=== PATIENT | female | born 2005 | race Caucasian/White ===

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

== ENCOUNTER 2024-05-11 04:11 | Emergency (ER) | payer MEDICAID ==
[~2024-05-11] VITALS: Ht 162.6 cm; Wt 58.2 kg
[2024-05-11] MEDS: ondansetron 4mg rapidly disintigrating tab PO ONE (04:38)
[2024-05-11] MEDS: ketorolac trometh 15mg/ml vial 15 MG/ML ML IV ONE (05:31)
[2024-05-11] MEDS: normal saline 1000ml 1,000 ML IV ONE (05:31)
[2024-05-11] MEDS: proCHLORperazine 10 MG/2 ml inj IV ONE (05:31)
[2024-05-11 05:32] VITALS: PULSE 87
[2024-05-11 05:48] VITALS: BP 120/80; RESP 14; TEMP 97.9; O2SAT 100
[2024-05-11] MEDS ORDERED: ONDA-245 PO (05:48)
== END 2024-05-11 06:24 | disposition home or self-care (01) ==
LOC: ER 04:12
DX: R11.2 Nausea with vomiting, unspecified (principal); Z88.0 Allergy status to penicillin; Z88.8 Allergy status to other drugs, medicaments and biological substances; Z87.440 Personal history of urinary (tract) infections
CPT/HCPCS: 96374; 96375; 99284; J0780; J1885; J7030

== ENCOUNTER 2025-01-24 03:30 | Emergency (ER) | payer MEDICAID ==
[~2025-01-24] VITALS: Ht 162.6 cm; Wt 70.5 kg
[~2025-01-24 03:30] MED LIST changes: +ONDA-245 PO
[2025-01-24 03:39] VITALS: BP 107/69; PULSE 127; RESP 22; TEMP 97.6; O2SAT 98
--- NOTE | 2025-01-24 04:45 | Physician Documentation ---
History of Present Illness ~ General Chief Complaint: See Chief Complaint Stated Complaint: SKIN CONDITION Time Seen by MD: 04:43 Primary Medical Doctor: DOESNT REMEMBER HER NAME History of Present Illness Initial Comments Patient presents to the emergency room for evaluation of pain to her vaginal area secondary to an infection. Patient has history of suppurative hidradenitis but she only gets her abscesses in her armpits never in her groin area. No fevers. Medication Reconciliation Allergies: Coded Allergies: Penicillins (Verified Allergy, Intermediate, RASH, 05/11/24) guanfacine HCl (Verified Allergy, Intermediate, HIVES, 05/11/24) amoxicillin (Verified Allergy, Unknown, 05/11/24) Scheduled Divalproex ER* (Depakote ER*), 1 TAB PO HS, (Reported) Duloxetine HCl (Duloxetine HCl), 2 CAP PO HS, (Reported) Lidocaine/Prilocaine (Lidocaine-Prilocaine Cream), 1 APPLIC TOP UD Ondansetron 8mg ODT (Ondansetron Odt), 1 TAB PO Q6H Past Medical History Past Medical History: Seizures, Kidney Stones, UTI, Extremity Fracture, *DERMATOLOGY*, Bipolar Past Surgical History: no surgical history Alcohol Use: None Drug Use: none Lives with: Family Lives In: Home Occupation: child Review of Systems ROS All review of systems negative except as per HPI Physical Exam Physical Exam Vital Signs: Temperature: 97.6, Source: Temporal, Heart Rate: 127, Respiratory Rate: 22, BP: 107/69, Pulse Oximetry: 98, Weight: 70.450 Oxygen Flow Rate: 0 Physical Exam General: Patient is awake, alert, oriented x4 in mild distress Head: Normocephalic and atraumatic. Eyes: Conjunctival normal. EOMI. PERRL. ENT: Mucous membranes moist. Neck: Supple, trachea is midline. Chest: Clear to auscultation bilaterally without rales, rhonchi, or wheezes. There is no accessory muscle use or retractions. Cardiac: RRR without murmurs, gallops, or rubs. : Bartholin cysts noted to patient's vaginal opening at the 6 o'clock position. Progress Results/Orders Results/Orders Completed Orders - ERIC LA MD Lidocaine/Epi/Tetracaine Top (Lidocaine/ (01/24/25 05:15) Ondansetron Disint. Tablet (Zofran Odt T (01/24/25 05:25) Lorazepam Tablet (Ativan Tablet) (01/24/25 05:25) Hydrocodone/Apap 5/325mg Tab (Mead 5/32 (01/24/25 05:25) Vital Signs 01/24/25 01/24/25 01/24/25 03:39 05:09 07:14 Temp 97.6 Pulse 127 Resp 22 B/P (MAP) 107/69 Pulse Ox 98 O2 Flow Rate 0 Medical Decision Making Addendum I received sign-out on this patient, see previous information. Briefly: The patient reportedly has a Bartholin cyst, and has severe anxiety. She did not t olerate treatment initially due to anxiety and so she was given Ativan, Mead, and topical lidocaine. Pending incision and drainage of her cyst. Re-evaluation: The abscess appears to have spontaneously started draining. I did perform a vaginal exam with a nurse tennis camp instructor. This shows a right-sided Bartholin's gland abscess that is spontaneously draining. I was able to express a large amount of purulent material and decompress the abscess. I did offer to place a word catheter, but the patient declined. After shared decision-making conversation, the patient decided she would prefer to just go home, do Sitz baths and warm compresses, and try to treat the abscess. If she develops worsening symptoms she will return to the ER for further evaluation and treatment. Departure Time of Disposition: 08:37 Disposition: 01 HOME / SELF CARE / HOMELESS Impression: Primary Impression: Bartholin's gland abscess Condition: Improved Discharge Instructions: Bartholin's Cyst Incision and Drainage Referrals: NO PRIMARY CARE PROVIDER (PCP) Education Educated: Patient, Family Educated regarding: diagnosis, treatment, need for follow up Signature Scribe Signature: na Attestation: The note accurately reflects work and decisions made by me.Eric La MD 01/25/25 01:56 ERIC Shearer MD Jan 24, 2025 04:45 PADDY BRENNER MD Jan 24, 2025 06:37
[2025-01-24] MEDS: ondansetron 4mg rapidly disintigrating tab PO ONE (05:25)
[2025-01-24] MEDS: HYDROcodone/acetaminophen 5mg/325mg tablet PO ONE (05:29)
[2025-01-24] MEDS: LIDOcaine/epinephrine/tetracaine TOPICAL sol 3 ML syringe TOP ONE (05:30)
== END 2025-01-24 09:01 | disposition home or self-care (01) ==
LOC: ER 03:31
DX: N75.1 Abscess of Bartholin's gland (principal); F31.9 Bipolar disorder, unspecified; Z87.440 Personal history of urinary (tract) infections; Z87.442 Personal history of urinary calculi; Z88.0 Allergy status to penicillin; Z88.8 Allergy status to other drugs, medicaments and biological substances
CPT/HCPCS: 99284; J3490